=== PATIENT | female | born 1950 | race Caucasian/White ===

== ENCOUNTER → 2016-12-08 | Outpatient (CLI) | payer OTHER ==
[~2016-12-08] MED LIST: CHOL200025 PO; CINN500C2 PO; CLON0.1T PO; CURCUMIN PO; CYAN10007 PO; DEXL60CA5 PO; FOLATE PO; HORMONE REPLACEMENT SL; HYDR-3454 PO; HYDR5TAB2 PO; KETO125C TP; MAGNESIUM PO; METO25TA6 PO; OM-31CAP2 PO; PANT40TA2 PO; PL1OP15 OD; POTA99TA15 PO; PYRI25TA13 PO; RED600CA2 PO; RIZA10TA20 PO; THYR48.7 PO; TRAM50TA2 PO
--- OUTSIDE RECORDS SUMMARY | 2016-12-08 07:05 | XMS REPORT | Continuity of Care Document ---
Author Author [facility] Organization [facility] Address Unknown Phone Unavailable Support Name Relationship Address Phone ANTONIO CHOUDHURY MD Caregiver #[address] [facility] [address] [place], [place] [id number] AIDE ARAUZ Next Of Kin [address] [place] [phone] Insurance Providers Payer Name Policy Number Subscriber Name Relationship [facility] [id number] Kylah Arauz 20 Self / Same As Patient Enter Insurance Name [id number] Kylah Arauz 20 Self / Same As Patient Advance Directives Directive Response Recorded Date/Time Advance Directives No 09/01/16 2:59pm Health Care Power of Bottling Attendant No 09/01/16 2:59pm Organ Donor Yes 09/01/16 2:59pm Resuscitation Status Full Code 09/01/16 2:59pm Problems No problem information available. Medications Current Home Medications Medication Dose Units Route Directions Days/Qty Instructions Start Date [Hormone Replacement] 0.5 Tab Sublingual Twice A Day Biest/P/T/PRE3.0/ 60/6.0/25mgt 07/24/14 Thyroid,Pork 48.75 Mg 48.75 Mg Oral Daily 07/24/14 Metoprolol Tartrate 25 Mg 25 Mg Oral Twice A Day 07/24/14 Dexlansoprazole 60 Mg 60 Mg Oral Daily 07/24/14 Pilocarpine Hcl 15 Ml 1 Drop Right Eye Daily 07/24/14 Tramadol Hcl 50 Mg 50 Mg Oral Four Times Daily as needed for Pain PRN PAIN 07/24/14 Rizatriptan Benzoate 10 Mg/Tab 0 Oral As Directed 1 tab at onset; repeat after 2 hours if significant relief is not attained; maximum: 3 tabs in a 24-hour period 07/24/14 [Curcumin] 750 Mg Oral Daily 07/24/14 [Magnesium] 500 Mg Oral Daily 07/24/14 Potassium Gluconate 99 Mg 99 Mg Oral Daily 07/24/14 Pyridoxine Hcl 25 Mg 25 Mg Oral Daily 07/24/14 Cyanocobalamin 1,000 Mcg 1,000 Mcg Oral Daily 07/24/14 [Folate] 1,000 Mcg Oral Daily 07/24/14 Cholecalciferol (Vitamin D3) 2,000 Unit 4,000 Unit Oral Daily TAKE 2 (2 ,000 IU) TABS 07/24/14 Om-3/Dha/Epa/Fish Oil/Vit D3 1 Each 1 Tab Oral Daily 07/24/14 Hydrocodone Bit/Acetaminophen 1 Each 1-2 Each Oral Every 4-6 Hrs as needed for Pain 30 07/30/14 Past Home Medications Medication Directions Ordered Status Ketoprofen 125 Gm Cream..g., 5 Gm Topical Three Times A Day as needed for Pain 07/24/14 Discontinued Social History Social History Problem Response Recorded Date/Time Alcohol Use Denies Use 09/01/2016 2:59pm Recreational Drug Use No 09/01/2016 2:59pm Recent Foreign Travel No 09/01/2016 2:58pm Recent Infectious Disease Exposure No 09/01/2016 2:58pm Sexually Transmitted Disease No 09/01/2016 2:59pm HIV/AIDS No 09/01/2016 2:59pm Smoking Status Never a Smoker 09/01/2016 2:59pm Recent Hopitalizations Y APRIL 2016-KIDNEY STONES 09/01/2016 2:59pm Sexually Transmitted Disease No 09/01/2016 2:59pm Query Response Start Date Stop Date Smoking Status Never a Smoker Hospital Discharge Instructions No hospital discharge instructions. Plan of Care Discharge Date 09/01/16 3:32pm Prescriptions See Medication Section Functional Status No functional status results. Allergies, Adverse Reactions, Alerts Allergen Type Severity Reaction Status Last Updated Iodinated Contrast Media - IV Dye Allergy Intermediate RASH, SWELLING Active 09/01/16 Immunizations No immunization records. Vital Signs Acute Vital Signs Vital Response Date/Time Height (Feet) 5 feet 09/01/2016 2:56pm Height (Inches) 4.00 inches 09/01/2016 2:56pm Height (Calculated Centimeters) 162.287209 cm 09/01/2016 2:56pm Weight (Pounds) 161 pounds 09/01/2016 2:56pm Weight (Ounces) 0.0 oz 09/01/2016 2:56pm Weight (Calculated Grams) 37437.37 gm 09/01/2016 2:56pm Weight (Calculated Kilograms) 73.853528 kilograms 09/01/2016 2:56pm Calculated BMI 27.6 09/01/2016 2:56pm Results No known relevant diagnostic tests, laboratory data and/or discharge summary. Procedures No known history of procedures. Encounters Encounter Location Arrival/Admit Date Discharge/Depart Date Attending Provider Departed Clinic [facility] 09/01/16 6:25am 09/01/16 3: 32pANTONIO Alfaro MD
== END ==
LOC: PREOP 07:02
PROVIDERS: ATTEND Surgery
DX: Z01.818 Encounter for other preprocedural examination (principal); Z12.11 Encounter for screening for malignant neoplasm of colon; K21.9 Gastro-esophageal reflux disease without esophagitis

== ENCOUNTER 2016-12-12 09:44 | Day surgery (SDC) | payer OTHER ==
[~2016-12-12] VITALS: Ht 162.6 cm; Wt 75.3 kg
[~2016-12-12 09:44] MED LIST changes: -CINN500C2 PO; -CLON0.1T PO; -HYDR5TAB2 PO; -PANT40TA2 PO; -RED600CA2 PO
--- OUTSIDE RECORDS SUMMARY | 2016-12-12 09:53 | XMS REPORT | Continuity of Care Document ---
Author Author [facility] Organization [facility] Address Unknown Phone Unavailable Support Name Relationship Address Phone ANTONIO CHOUDHURY MD Caregiver #[address] [facility] [address] [place], [place] [id number] AIDE ARAUZ Next Of Kin [address] [place] [phone] Insurance Providers Payer Name Policy Number Subscriber Name Relationship [facility] [id number] Kylah Arauz 20 Self / Same As Patient Enter Insurance Name [id number] Kylah Arauz 20 Self / Same As Patient Advance Directives Directive Response Recorded Date/Time Advance Directives No 09/01/16 2:59pm Health Care Power of Button Sewer No 09/01/16 2:59pm Organ Donor Yes 09/01/16 [...] 4.00 inches 09/01/2016 2:56pm Height (Calculated Centimeters) 162.723850 cm 09/01/2016 2:56pm Weight (Pounds) 161 pounds 09/01/2016 2:56pm Weight (Ounces) 0.0 oz 09/01/2016 2:56pm Weight (Calculated Grams) 50072.37 gm 09/01/2016 2:56pm Weight (Calculated Kilograms) 73.582315 kilograms 09/01/2016 2:56pm Calculated BMI 27.6 09/01/2016 2:56pm Results No known relevant diagnostic tests, laboratory data and/or discharge summary. Procedures No known history of procedures. Encounters Encounter Location Arrival/Admit Date Discharge/Depart Date Attending Provider Departed Clinic [facility] 09/01/16 6:25am 09/01/16 3: 32pANTONIO Alfaro MD
--- OUTSIDE RECORDS SUMMARY | 2016-12-12 09:54 | XMS REPORT | Continuity of Care Document ---
Author Author [facility] Organization [facility] Address Unknown Phone Unavailable Support Name Relationship Address Phone ANTONIO CHOUDHURY MD Caregiver #[address] [facility] [address] [place], [place] [id number] AIDE ARAUZ Next Of Kin [address] [place] [phone] Insurance Providers Payer Name Policy Number Subscriber Name Relationship [facility] [id number] Kylah Arauz 20 Self / Same As Patient Enter Insurance Name [id number] Kylah Arauz 20 Self / Same As Patient Advance Directives Directive Response Recorded Date/Time Advance Directives No 09/01/16 2:59pm Health Care Power of Check Examiner No 09/01/16 2:59pm Organ Donor Yes 09/01/16 [...] 4.00 inches 09/01/2016 2:56pm Height (Calculated Centimeters) 162.187220 cm 09/01/2016 2:56pm Weight (Pounds) 161 pounds 09/01/2016 2:56pm Weight (Ounces) 0.0 oz 09/01/2016 2:56pm Weight (Calculated Grams) 47813.37 gm 09/01/2016 2:56pm Weight (Calculated Kilograms) 73.804050 kilograms 09/01/2016 2:56pm Calculated BMI 27.6 09/01/2016 2:56pm Results No known relevant diagnostic tests, laboratory data and/or discharge summary. Procedures No known history of procedures. Encounters Encounter Location Arrival/Admit Date Discharge/Depart Date Attending Provider Departed Clinic [facility] 09/01/16 6:25am 09/01/16 3: 32pANTONIO Alfaro MD
[2016-12-12] MEDS ORDERED: NS IV 500 ML 500 ML ONE (09:56)
[2016-12-12] MEDS ORDERED: NALOXONE 0.4 MG/ML 1 ML (NARCAN) VIAL IVP PRN (10:00)
[2016-12-12] MEDS ORDERED: FLUMAZENIL (ROMAZICON) 0.1 MG/ML 5 ML VIAL INJ PRN (10:00)
[2016-12-12] MEDS ORDERED: NS IV 500 ML 500 ML IV PRN (10:00)
[2016-12-12 10:15] VITALS: BP 151/98
--- NOTE | 2016-12-12 10:25 | Pre-Op Note & Conscious Sedat ---
Pre-Operative Progress Note H&P Reviewed The H&P was reviewed, patient examined and no changes noted. Date H&P Reviewed: Dec 12, 2016 Time H&P Reviewed: 10:24 Pre-Op Diagnosis: GERD. Screening Conscious Sedation Pre-Proced ASA Class: 2 Airway Mallampati Classification: ([place] appropriate class) I. II. III, IV Lungs Heart ASA score ASA 1: a normal healthy patient ASA 2: a patient with a mild systemic disease (mid diabetes, controlled hypertension, obesity ASA 3: a patient with a severe systemic disease that limits activity (angina , COPD, prior Myocardial infarction) ASA 4: a patient with an incapacitating disease that is a constant threat to life (CHF, renal failure) ASA 5: a moribund patient not expected to survive 24 hrs. (ruptured aneurysm) ASA 6: a declared brain patient whose organs are being harvested. For emergent operations, add the letter E after the classification Grade 2 Sedation Plan: Discussed options with patient/fam Note The patient is an appropriate candidate to undergo the planned procedure, sedation, and anesthesia. The patient immediately re-assessed prior to indication. ANTONIO CHOUDHURY MD Dec 12, 2016 10:25 am
[2016-12-12] MEDS ORDERED: RED600CA2 PO (10:29)
[2016-12-12] MEDS ORDERED: CLON0.1T PO (10:29)
[2016-12-12] MEDS ORDERED: CINN500C2 PO (10:29)
[2016-12-12] MEDS ORDERED: HYDR5TAB2 PO (10:29)
[2016-12-12] MEDS ORDERED: fentaNYL INJECTION 100 MCG/2 ML AMP ONE ×2 (10:47)
[2016-12-12] MEDS ORDERED: MIDAZOLAM 2 MG/2 ML (VERSED) VIAL ONE ×4 (10:48)
[2016-12-12] MEDS ORDERED: HURRICAINE EXT TUBE (BENZOCAINE) ONE (10:48)
[2016-12-12] MEDS: fentaNYL INJECTION 100 MCG/2 ML AMP IVP PRN ×4 (10:57→11:14)
[2016-12-12] MEDS: MIDAZOLAM 2 MG/2 ML (VERSED) VIAL IVP PRN ×4 (11:03→11:13)
--- NOTE | 2016-12-12 11:26 | Progress Note-Post Operative ---
Post-Operative Progess Note Pre-Operative Diagnosis GERD. Screening Post-Operative Diagnosis EGD: Short hiatal hernia with grade 2 esophagitis. Stomach and duodenum normal Normal colonoscopy Post-Op Procedure Note Date of Procedure: Dec 12, 2016 Name of Procedure: EGD with antral biopsy Colonoscopy to cecum Anesthesia Type sedation Specimen(s) collected antral mucosa ANTONIO CHOUDHURY MD Dec 12, 2016 11:26 am
[2016-12-12] MEDS ORDERED: PANT40TA2 PO (11:27)
--- NOTE | 2016-12-12 11:29 | Discharge Inst-Simple/Standard ---
Discharge Inst-Standard Discharge Medications New, Converted or Re-Newed RX: RX on Chart Patient Instructions/Follow Up Plan of Care/Instructions/FU: follow-up with her primary. Screening colonoscopy in 10 years Activity as Tolerated: Yes Discharge Diet: No Restrictions ANTONIO CHOUDHURY MD Dec 12, 2016 11:29 am
--- NOTE | 2016-12-12 11:43 | OPERATIVE REPORT ---
PROCEDURE PHYSICIAN: ANTONIO CHOUDHURY DATE OF PROCEDURE: 12/12/2016 PROCEDURES: 1. Upper GI endoscopy with antral biopsy. 2. Screening colonoscopy. SURGEON: Dr. Choudhury. INDICATION FOR THE PROCEDURE: This lady came in for an upper endoscopy to evaluate symptoms of reflux disease and for screening colonoscopy. Informed consent was obtained after reviewing the procedures in detail. DESCRIPTION OF PROCEDURE: 1. UPPER GI ENDOSCOPY/ANTRAL BIOPSY: She was placed in left lateral decubitus position and her vital signs were monitored. Conscious sedation was achieved using Versed and fentanyl. The flexible gastroscope was introduced down the esophagus, past the stomach, into the proximal duodenum. FINDINGS: ESOPHAGUS: A short hiatal hernia with grade 2 esophagitis. STOMACH AND DUODENUM: Were normal. An antral biopsy was obtained for Helicobacter status. She tolerated the procedure well and was turned around in preparation for colonoscopy. IMPRESSION: 1. Symptoms of reflux disease. 2. Grade 2 esophagitis and a very short hiatal hernia. A prescription for Protonix has been initiated. 2. COLONOSCOPY: Digital rectal examination was unremarkable. The colonoscope was then introduced into the rectum and advanced all the way up to the cecum. The quality of bowel preparation was reasonable. The scope was then withdrawn slowly and the mucosa examined in a systematic fashion. There was no abnormality. She tolerated the procedure well and was taken back to the nursing area in a stable condition. IMPRESSION: 1. Normal screening colonoscopy. 2. No family history. RECOMMENDATION: Recommend repeating in 10 years. Job ID: [id number] Dictated Date: 12/12/2016 11:25:53 Medical Record Librarian Date: 12/12/2016 11:39:59 / dawood WILSON
[2016-12-12 11:50] VITALS: BP 143/83
[2016-12-12 12:20] VITALS: BP 138/84
[2016-12-12 12:33] VITALS: BP 138/84
== END 2016-12-12 12:33 | disposition home or self-care (01) ==
LOC: ENDO 09:44
PROVIDERS: ATTEND Surgery
DX: Z12.11 Encounter for screening for malignant neoplasm of colon (principal); K20.9 Esophagitis, unspecified; K44.9 Diaphragmatic hernia without obstruction or gangrene
CPT/HCPCS: 88305

== ENCOUNTER → 2019-06-10 | Outpatient (CLI) | payer MEDICARE, OTHER ==
[~2019-06-10] MED LIST changes: +CINN500C2 PO; +CLON0.1T PO; +HYDR5TAB8 PO; +PANT40TA2 PO; +RED600CA2 PO
--- NOTE | 2019-06-10 16:04 | Diagnostic Imaging Report ---
INDICATION: Routine screening. COMPARISON: 10/12/2016 and 07/17/2012. TECHNIQUE: 2D and 3D bilateral screening mammography was performed with CAD. FINDINGS: Both breasts remain heterogeneously dense, limiting the sensitivity of mammography. The parenchymal pattern is stable. No mass or malignant appearing microcalcifications are seen. The axillae are unremarkable. IMPRESSION: No mammographic features suspicious for malignancy are identified. ACR BI-RADS Category 1: Negative. Result letter will be mailed to the patient. Note: At least 10% of breast cancer is not imaged by mammography. Dictated by: Dictated on workstation # [id number]
== END ==
LOC: RAD 11:10
PROVIDERS: ATTEND Nurse Practitioner Primary Care
DX: Z12.31 Encounter for screening mammogram for malignant neoplasm of breast (principal)
CPT/HCPCS: 77067

== ENCOUNTER → 2020-06-11 | Outpatient (CLI) | payer MEDICARE, OTHER ==
[~2020-06-11] MED LIST changes: +HYDR5TAB14 PO; -HYDR5TAB8 PO
--- NOTE | 2020-06-11 15:45 | Diagnostic Imaging Report ---
INDICATION: Routine screening. COMPARISON is made with prior mammograms from 06/10/2019 and 10/12/2016. 2-D and 3-D bilateral screening mammography was performed with CAD. Both breasts are heterogeneously dense, limiting the sensitivity of mammography. The parenchymal pattern is stable. No mass or malignant appearing microcalcifications are seen. Axillae are unremarkable. IMPRESSION: BI-RADS Category 2 No mammographic features suspicious for malignancy are identified. ACR BI-RADS Category 2: Benign findings. Result letter will be mailed to the patient. Note: At least 10% of breast cancer is not imaged by mammography. Dictated by: Dictated on workstation # [id number]
== END ==
LOC: RAD 10:47
PROVIDERS: ATTEND Physician Assistant
DX: Z12.31 Encounter for screening mammogram for malignant neoplasm of breast (principal)
CPT/HCPCS: 77063; 77067